=== PATIENT | female | born 1945 | race Hispanic/Latino ===

== ENCOUNTER 2022-06-23 17:12 | Emergency (ER) | payer MEDICARE ==
[2022-06-23 19:12] LABS: ALT (SGPT) 12 U/L (8-55); AST (SGOT) 23 U/L (5-34); Albumin 4.4 g/dL (3.4-4.8); Alkaline Phosphatase 92 U/L (40-110); Anion Gap 16 mmol/L (10-20); BUN (Urea Nitrogen) 17 mg/dL (9.8-20.1); Bilirubin, Total 0.3 mg/dL (0.2-1.2); Calc. Creatinine Clearance 0 mL/min (70-130); Carbon Dioxide 25 mmol/L (23-31); Chloride 101 mmol/L (98-107); Estimated GFR 77; Globulin 2.7 g/dL (2.4-3.5); Glucose 104 mg/dL (83-110); Potassium 3.7 mmol/L (3.5-5.1); Protein, Total 7.1 g/dL (5.8-8.1); Sodium 138 mmol/L (136-145)
[2022-06-23 19:14] LABS: #Monocytes 0.7 10x3/uL (0.0-1.1); #Neutrophils 6.3 10x3/uL (1.5-8.4); %Basophils 0.2 % (0.0-2.0); %Eosinophils 0.2 % (0.0-6.0); %Lymphocytes 16.3 % (18.0-47.0); %Monocytes 8.1 % (0.0-10.0); %Neutrophils 74.8 % (40.0-75.0); Hemoglobin 15.2 g/dL (12.0-15.5); Mean Corpuscular HGB CONC 32.9 g/dL (32.0-36.0); Mean Corpuscular Hemoglobin 27.9 pg (27.0-33.0); Mean Corpuscular Volume 84.8 fl (81.6-98.3); Mean Platelet Volume 9.8 fl (7.4-10.4); Platelet Count 334 10x3/uL (150-450); RBC Distribution Width 14.3 % (11.5-14.5); Red Blood Cell (RBC) Count 5.45 10x6/uL (3.90-5.03); White Blood Cell (WBC) Count 8.4 10x3/uL (3.5-10.5)
[2022-06-23 19:32] LABS: Bilirubin Neg (Negative); Blood, Urine Negative (Negative); Clarity Clear (Clear); Glucose, Urine (Dipstick) Normal (Negative); Ketone, Urine Negative (Negative); Leukocyte Negative (Negative); Nitrite Negative (Negative); Protein, Urine (Dipstick) Negative (Neg-Trace); Urobilinogen Normal mg/dL (Less than 2)
== END 2022-06-23 20:31 | disposition home or self-care (01) ==
LOC: CSHERS 17:12
DX: U07.1 COVID-19 (principal); R53.83 Other fatigue; E78.5 Hyperlipidemia, unspecified; I10 Essential (primary) hypertension; Z79.899 Other long term (current) drug therapy
CPT/HCPCS: 36415; 71045; 80053; 81003; 85025

== ENCOUNTER 2022-11-15 21:36 | Inpatient (IN) | payer MEDICARE ==
[~2022-11-15 21:36] MED LIST: Iopamidol 370 76% 100 ML VIAL ONE
[2022-11-15] MEDS ORDERED: Nitroglycerin 2% Ointment 1 INCH/1 GM Packet ONE (22:16)
[2022-11-15] MEDS ORDERED: Furosemide 40 MG/4 ML VIAL ONE (22:52)
[2022-11-15 22:54] LABS: #Eosinphils 0.1 10x3/uL (0.0-0.5); #Monocytes 0.7 10x3/uL (0.0-1.1); #Neutrophils 7.5 10x3/uL (1.5-8.4); %Basophils 0.4 % (0.0-2.0); %Eosinophils 1.1 % (0.0-6.0); %Lymphocytes 16.7 % (18.0-47.0); %Monocytes 6.8 % (0.0-10.0); %Neutrophils 74.6 % (40.0-75.0); Mean Corpuscular Hemoglobin 27.8 pg (27.0-33.0); Mean Corpuscular Volume 84.3 fl (81.6-98.3); Mean Platelet Volume 9.8 fl (7.4-10.4); Platelet Count 359 10x3/uL (150-450); RBC Distribution Width 14.5 % (11.5-14.5); Red Blood Cell (RBC) Count 5.03 10x6/uL (3.90-5.03)
[2022-11-15 23:15] LABS: ALT (SGPT) 27 U/L (8-55); AST (SGOT) 47 U/L (5-34); Albumin 4.1 g/dL (3.4-4.8); Alkaline Phosphatase 100 U/L (40-110); Anion Gap 14 mmol/L (10-20); BUN (Urea Nitrogen) 21 mg/dL (9.8-20.1); Bilirubin, Total 0.3 mg/dL (0.2-1.2); Calc. Creatinine Clearance 0 mL/min (70-130); Calcium 9.3 mg/dL (7.8-10.44); Carbon Dioxide 28 mmol/L (23-31); Chloride 101 mmol/L (98-107); Estimated GFR 34; Globulin 2.3 g/dL (2.4-3.5); Glucose 117 mg/dL (83-110); Potassium 2.9 mmol/L (3.5-5.1); Protein, Total 6.4 g/dL (5.8-8.1); Sodium 140 mmol/L (136-145)
[2022-11-15 23:39] LABS: CKMB 2.5 ng/mL (0-6.6)
[2022-11-15] MEDS ORDERED: Potassium Chloride 20 MEQ TAB ONE (23:43)
[2022-11-15] MEDS ORDERED: hydrALAZINE 20 MG/ML VIAL ONE (23:43)
[2022-11-16] MEDS ORDERED: Aspirin 325 MG TAB ONE ×2 (00:10→08:15)
[2022-11-16 00:30] LABS: Bilirubin Neg (Negative); Blood, Urine 10 (Negative); Clarity Clear (Clear); Glucose, Urine (Dipstick) Normal (Negative); Ketone, Urine Negative (Negative); Leukocyte Negative (Negative); Nitrite Negative (Negative); Protein, Urine (Dipstick) 100 mg/dl (Neg-Trace); Specific Gravity, Urine 1.005 (1.005-1.030); Urobilinogen Normal mg/dL (Less than 2)
[2022-11-16 00:34] LABS: Bacteria/HPF Rare-Few HPF (None Seen); RBC/HPF 0-3 HPF (0-3); Squamous Epithelial 0-3 HPF (0-3)
[2022-11-16] MEDS ORDERED: Metoprolol Tartrate 5 MG/5 ML VIAL IVP PRN (01:54)
[2022-11-16] MEDS ORDERED: cefTRIAXone\\ROCEPHIN 1 GM VIAL ONE (03:21)
[2022-11-16] MEDS: cefTRIAXone\\ROCEPHIN 1 GM in Sodium Chloride 0.9% 100 ML IVPB SCH (03:38)
[2022-11-16 04:07] VITALS: BMI 23.0
[2022-11-16] MEDS ORDERED: Azithromycin 500 MG VIAL ONE (04:16)
[2022-11-16] MEDS: Azithromycin 500 MG in Sodium Chloride 0.9% 250 ML 250 ML IVPB SCH (04:22)
[2022-11-16 04:36] LABS: SARS-CoV-2 NAA Rapid Test DETECTED (NotDetected)
[2022-11-16 08:14] LABS: #Basophils 0.1 10x3/uL (0.0-0.2); #Eosinphils 0.1 10x3/uL (0.0-0.5); #Monocytes 0.9 10x3/uL (0.0-1.1); #Neutrophils 6.8 10x3/uL (1.5-8.4); %Basophils 0.8 % (0.0-2.0); %Lymphocytes 15.2 % (18.0-47.0); %Monocytes 9.3 % (0.0-10.0); %Neutrophils 73.4 % (40.0-75.0); Hemoglobin 13.8 g/dL (12.0-15.5); Mean Corpuscular HGB CONC 33.3 g/dL (32.0-36.0); Mean Corpuscular Hemoglobin 28.1 pg (27.0-33.0); Mean Corpuscular Volume 84.3 fl (81.6-98.3); Mean Platelet Volume 9.8 fl (7.4-10.4); Platelet Count 349 10x3/uL (150-450); RBC Distribution Width 14.5 % (11.5-14.5); Red Blood Cell (RBC) Count 4.91 10x6/uL (3.90-5.03); White Blood Cell (WBC) Count 9.3 10x3/uL (3.5-10.5)
[2022-11-16] MEDS ORDERED: Heparin 5,000 UNITS/ML VIAL ONE (08:15)
[2022-11-16 08:49] LABS: Anion Gap 17 mmol/L (10-20); BUN (Urea Nitrogen) 25 mg/dL (9.8-20.1); Calc. Creatinine Clearance 37 mL/min (70-130); Carbon Dioxide 24 mmol/L (23-31); Chloride 106 mmol/L (98-107); Estimated GFR 46; Glucose 108 mg/dL (83-110); Magnesium 1.7 mg/dL (1.6-2.6); Potassium 3.5 mmol/L (3.5-5.1); Sodium 143 mmol/L (136-145)
[2022-11-16] MEDS ORDERED: Heparin 5,000 UNITS/ML VIAL SC SCH (09:00)
[2022-11-16] MEDS ORDERED: Aspirin 325 mg Enteric Coated Tablet PO SCH (09:00)
[2022-11-16 10:08] LABS: #Basophils 0.1 10x3/uL (0.0-0.2); #Eosinphils 0.2 10x3/uL (0.0-0.5); #Neutrophils 7.4 10x3/uL (1.5-8.4); %Basophils 0.6 % (0.0-2.0); %Eosinophils 1.5 % (0.0-6.0); %Lymphocytes 14.6 % (18.0-47.0); %Monocytes 9.8 % (0.0-10.0); %Neutrophils 73.1 % (40.0-75.0); Hemoglobin 13.4 g/dL (12.0-15.5); Mean Corpuscular HGB CONC 33.6 g/dL (32.0-36.0); Mean Corpuscular Hemoglobin 28.2 pg (27.0-33.0); Mean Platelet Volume 9.8 fl (7.4-10.4); Platelet Count 367 10x3/uL (150-450); RBC Distribution Width 14.6 % (11.5-14.5); Red Blood Cell (RBC) Count 4.75 10x6/uL (3.90-5.03); White Blood Cell (WBC) Count 10.1 10x3/uL (3.5-10.5)
[2022-11-16 11:20] LABS: INR-International Normal Ratio 1.1; Prothrombin Time 11.4 sec (9.5-12.1)
[2022-11-16 11:21] LABS: PTT 137.7 sec (22.0-33.0)
[2022-11-16] MEDS ORDERED: FLU VACC QS2022-23(65YR UP)/PF 240 MCG/0.7 ML SYRINGE IM ONE (13:15)
[2022-11-16 15:45] LABS: CKMB 4.4 ng/mL (0-6.6)
[2022-11-16] MEDS: sulfaSALAzine 500 MG TAB PO SCH (21:26)
[2022-11-16] MEDS: Isosorbide Dinitrate 10 MG TAB PO SCH (21:26)
[2022-11-17] MEDS: cefTRIAXone\\ROCEPHIN 1 GM in Sodium Chloride 0.9% 100 ML IVPB SCH (03:36)
[2022-11-17] MEDS: Azithromycin 500 MG in Sodium Chloride 0.9% 250 ML 250 ML IVPB SCH (05:07)
[2022-11-17] MEDS: Metoprolol Tartrate 25 MG TAB PO SCH ×2 (08:50→20:16)
[2022-11-17] MEDS: Lisinopril 20 MG TAB PO SCH (08:50)
[2022-11-17] MEDS: sulfaSALAzine 500 MG TAB PO SCH ×2 (08:50→20:16)
[2022-11-17] MEDS: Aspirin 81 mg Enteric Coated Tablet PO SCH (08:50)
[2022-11-17] MEDS: Isosorbide Dinitrate 10 MG TAB PO SCH ×2 (08:50→20:16)
[2022-11-17] MEDS ORDERED: Metoprolol Tartrate 25 MG TAB PO SCH (09:00)
[2022-11-17] MEDS: Nitroglycerin 2% Ointment 1 INCH/1 GM Packet TOP SCH ×2 (10:41→16:59)
[2022-11-17] MEDS ORDERED: Furosemide 20 MG/2 ML VIAL SLOW IVP SCH (12:00)
[2022-11-17 13:13] LABS: Troponin I 0.342 ng/mL (< 0.028)
[2022-11-17] MEDS ORDERED: Atorvastatin Calcium 40 MG TAB PO SCH (21:00)
[2022-11-18] MEDS: Nitroglycerin 2% Ointment 1 INCH/1 GM Packet TOP SCH ×2 (01:43→08:29)
[2022-11-18] MEDS: cefTRIAXone\\ROCEPHIN 1 GM in Sodium Chloride 0.9% 100 ML IVPB SCH (04:49)
[2022-11-18] MEDS: Azithromycin 500 MG in Sodium Chloride 0.9% 250 ML 250 ML IVPB SCH (04:49)
[2022-11-18 05:56] LABS: #Eosinphils 0.3 10x3/uL (0.0-0.5); #Monocytes 0.8 10x3/uL (0.0-1.1); #Neutrophils 4.7 10x3/uL (1.5-8.4); %Basophils 0.5 % (0.0-2.0); %Eosinophils 3.9 % (0.0-6.0); %Lymphocytes 19.9 % (18.0-47.0); %Monocytes 10.9 % (0.0-10.0); %Neutrophils 64.5 % (40.0-75.0); Hemoglobin 12.7 g/dL (12.0-15.5); Mean Corpuscular HGB CONC 32.8 g/dL (32.0-36.0); Mean Corpuscular Hemoglobin 27.7 pg (27.0-33.0); Mean Corpuscular Volume 84.3 fl (81.6-98.3); Mean Platelet Volume 9.9 fl (7.4-10.4); Platelet Count 332 10x3/uL (150-450); RBC Distribution Width 14.7 % (11.5-14.5); Red Blood Cell (RBC) Count 4.59 10x6/uL (3.90-5.03); White Blood Cell (WBC) Count 7.4 10x3/uL (3.5-10.5)
[2022-11-18 06:06] LABS: Anion Gap 13 mmol/L (10-20); BUN (Urea Nitrogen) 28 mg/dL (9.8-20.1); Calc. Creatinine Clearance 47 mL/min (70-130); Carbon Dioxide 24 mmol/L (23-31); Chloride 107 mmol/L (98-107); Estimated GFR 63; Glucose 97 mg/dL (83-110); Potassium 3.4 mmol/L (3.5-5.1); Sodium 141 mmol/L (136-145)
[2022-11-18] MEDS ORDERED: Dexamethasone 4 MG TAB PO SCH (08:00)
[2022-11-18] MEDS: Lisinopril 20 MG TAB PO SCH (08:29)
[2022-11-18] MEDS: sulfaSALAzine 500 MG TAB PO SCH (08:29)
[2022-11-18] MEDS: Aspirin 81 mg Enteric Coated Tablet PO SCH (08:30)
[2022-11-18] MEDS: Isosorbide Dinitrate 10 MG TAB PO SCH (08:32)
[2022-11-18 13:48] VITALS: BP 129/87; TEMP 97.9
== END 2022-11-18 14:19 | disposition home or self-care (01) | DRG 177 ==
LOC: CSHERS 21:36 → CSHERHOLD 11-16 03:26 → CSHTELE 11-16 12:18
PROVIDERS: ADMIT Internal Medicine; ATTEND Internal Medicine
PROC: 8E0ZXY6 Isolation (ICD-10-PCS; principal; 2022-11-16)
DX: U07.1 COVID-19 (principal); I21.4 Non-ST elevation (NSTEMI) myocardial infarction; I50.43 Acute on chronic combined systolic (congestive) and diastolic (congestive) heart failure; J15.9 Unspecified bacterial pneumonia; J96.01 Acute respiratory failure with hypoxia; N17.9 Acute kidney failure, unspecified; E78.00 Pure hypercholesterolemia, unspecified; I25.10 Atherosclerotic heart disease of native coronary artery without angina pectoris; I44.7 Left bundle-branch block, unspecified; R42 Dizziness and giddiness; I16.0 Hypertensive urgency; R77.8 Other specified abnormalities of plasma proteins; I11.0 Hypertensive heart disease with heart failure; F41.9 Anxiety disorder, unspecified; Z79.899 Other long term (current) drug therapy; Z91.198 Patient's noncompliance with other medical treatment and regimen for other reason; Z95.5 Presence of coronary angioplasty implant and graft; Z79.82 Long term (current) use of aspirin; Z98.890 Other specified postprocedural states; Z90.49 Acquired absence of other specified parts of digestive tract
CPT/HCPCS: 36415; 71045; 71275; 80048; 80053; 81003; 81015; 82553; 83605; 83735; 83880; 84443; 84484; 85025; 85379; 85610; 85730; 86140; 93005; 93010; 93306; 94760; 96374; 96375; J0360; J0456; J0696; J1644; J1940; J3490; J7050; J8540; Q9967; U0002

== ENCOUNTER 2022-11-20 00:02 | Inpatient (IN) | payer MEDICARE ==
[2022-11-20] MEDS ORDERED: hydrALAZINE 20 MG/ML VIAL ONE ×2 (00:22→01:50)
[2022-11-20 00:42] LABS: #Basophils 0.1 10x3/uL (0.0-0.2); #Eosinphils 0.3 10x3/uL (0.0-0.5); #Monocytes 0.8 10x3/uL (0.0-1.1); #Neutrophils 8.4 10x3/uL (1.5-8.4); %Basophils 0.6 % (0.0-2.0); %Eosinophils 2.7 % (0.0-6.0); %Lymphocytes 22.2 % (18.0-47.0); %Monocytes 6.6 % (0.0-10.0); %Neutrophils 67.3 % (40.0-75.0); Mean Corpuscular HGB CONC 31.6 g/dL (32.0-36.0); Mean Corpuscular Hemoglobin 27.6 pg (27.0-33.0); Mean Corpuscular Volume 87.3 fl (81.6-98.3); Mean Platelet Volume 9.9 fl (7.4-10.4); Platelet Count 461 10x3/uL (150-450); RBC Distribution Width 14.9 % (11.5-14.5); Red Blood Cell (RBC) Count 5.43 10x6/uL (3.90-5.03); White Blood Cell (WBC) Count 12.4 10x3/uL (3.5-10.5)
[2022-11-20 00:47] LABS: ALT (SGPT) 106 U/L (8-55); AST (SGOT) 149 U/L (5-34); Albumin 4.2 g/dL (3.4-4.8); Alkaline Phosphatase 145 U/L (40-110); Anion Gap 19 mmol/L (10-20); BUN (Urea Nitrogen) 33 mg/dL (9.8-20.1); Bilirubin, Total 0.3 mg/dL (0.2-1.2); Calc. Creatinine Clearance 0 mL/min (70-130); Calcium 9.3 mg/dL (7.8-10.44); Carbon Dioxide 25 mmol/L (23-31); Chloride 104 mmol/L (98-107); Estimated GFR 51; Globulin 2.2 g/dL (2.4-3.5); Glucose 110 mg/dL (83-110); Potassium 3.5 mmol/L (3.5-5.1); Protein, Total 6.4 g/dL (5.8-8.1); Sodium 144 mmol/L (136-145)
[2022-11-20 01:04] LABS: CKMB 1.4 ng/mL (0-6.6)
[2022-11-20] MEDS ORDERED: Aspirin 325 MG TAB ONE (01:50)
[2022-11-20] MEDS ORDERED: Bisacodyl 5 MG TAB PO PRN (01:58)
[2022-11-20] MEDS ORDERED: HYDROcodone/Acetaminophen 5/325 mg Tablet PO PRN (01:58)
[2022-11-20] MEDS ORDERED: Zolpidem Tartrate 5 MG TAB PO PRN (01:58)
[2022-11-20] MEDS ORDERED: Acetaminophen 325 MG TAB PO PRN ×2 (01:58)
[2022-11-20] MEDS ORDERED: Acetaminophen 650 MG Suppository PR PRN (01:58)
[2022-11-20] MEDS ORDERED: Guaifenesin DM 100-10/5 ML UDCUP PO PRN (01:58)
[2022-11-20] MEDS ORDERED: Ventolin HFA Inhaler 60 PUFF INHALER INH PRN (01:58)
[2022-11-20] MEDS ORDERED: Nitroglycerin 0.4 MG TAB (25 Tab Bottle) SL PRN (01:58)
[2022-11-20] MEDS ORDERED: Benzonatate 100 MG CAP PO PRN (01:58)
[2022-11-20] MEDS ORDERED: Aspirin 325 MG TAB PO SCH (02:15)
[2022-11-20] MEDS ORDERED: Furosemide 40 MG/4 ML VIAL SLOW IVP SCH ×2 (02:15→09:15)
[2022-11-20] MEDS: cefTRIAXone\\ROCEPHIN 2 GM in Sodium Chloride 0.9% 100 ML IVPB SCH (03:10)
[2022-11-20 04:01] LABS: ALT (SGPT) 104 U/L (8-55); AST (SGOT) 121 U/L (5-34); Albumin 3.6 g/dL (3.4-4.8); Alkaline Phosphatase 121 U/L (40-110); Anion Gap 17 mmol/L (10-20); BUN (Urea Nitrogen) 30 mg/dL (9.8-20.1); Bilirubin, Direct 0.1 mg/dL (0.1-0.3); Bilirubin, Total 0.3 mg/dL (0.2-1.2); Calc. Creatinine Clearance 46 mL/min (70-130); Carbon Dioxide 24 mmol/L (23-31); Cardiac Risk 3.8 (Less than 4.5); Chloride 106 mmol/L (98-107); Cholesterol 169 mg/dl (< 200 Desired); Estimated GFR 61; Glucose 103 mg/dL (83-110); HDL Cholesterol 44 mg/dL (>60 Neg Risk); LDL Cholesterol, Calculated 96 mg/dL; Magnesium 1.7 mg/dL (1.6-2.6); Potassium 3.7 mmol/L (3.5-5.1); Protein, Total 5.7 g/dL (5.8-8.1); Sodium 143 mmol/L (136-145); Triglycerides 147 mg/dL (Less than 150)
[2022-11-20 04:09] LABS: #Basophils 0.1 10x3/uL (0.0-0.2); #Eosinphils 0.2 10x3/uL (0.0-0.5); #Monocytes 0.9 10x3/uL (0.0-1.1); #Neutrophils 11.4 10x3/uL (1.5-8.4); %Basophils 0.5 % (0.0-2.0); %Eosinophils 1.2 % (0.0-6.0); %Lymphocytes 8.9 % (18.0-47.0); %Monocytes 6.2 % (0.0-10.0); %Neutrophils 82.7 % (40.0-75.0); Hemoglobin 13.6 g/dL (12.0-15.5); Mean Corpuscular HGB CONC 32.3 g/dL (32.0-36.0); Mean Corpuscular Hemoglobin 27.8 pg (27.0-33.0); Mean Corpuscular Volume 86.1 fl (81.6-98.3); Platelet Count 331 10x3/uL (150-450); Red Blood Cell (RBC) Count 4.89 10x6/uL (3.90-5.03); White Blood Cell (WBC) Count 13.8 10x3/uL (3.5-10.5)
[2022-11-20 04:16] LABS: CRP (Inflammatory) 1.08 mg/dL (= or < 0.5)
[2022-11-20] MEDS: Furosemide 40 MG/4 ML VIAL SLOW IVP SCH ×2 (05:58→15:14)
[2022-11-20 07:06] LABS: CKMB 1.5 ng/mL (0-6.6)
[2022-11-20] MEDS: sulfaSALAzine 500 MG TAB PO SCH ×2 (08:50→20:19)
[2022-11-20] MEDS: Lisinopril 20 MG TAB PO SCH (08:50)
[2022-11-20] MEDS: Isosorbide Dinitrate 20 MG TAB PO SCH ×2 (08:50→20:19)
[2022-11-20] MEDS: Zinc Sulfate 220 MG CAP PO SCH (08:50)
[2022-11-20] MEDS: Ascorbic Acid 500 mg Chewable Tablet PO SCH (08:50)
[2022-11-20] MEDS: Aspirin 81 mg Enteric Coated Tablet PO SCH (08:50)
[2022-11-20] MEDS: Dexamethasone 4 MG TAB PO SCH (08:51)
[2022-11-20] MEDS: Enoxaparin Sodium 40 MG/0.4 ML SYRINGE SC SCH (08:51)
[2022-11-20] MEDS ORDERED: REMDESIVIR 200 MG in Sodium Chloride 0.9% 250 ML 250 ML IV SCH (09:00)
[2022-11-20] MEDS ORDERED: Dexamethasone 20 MG/5 ML VIAL SLOW IVP SCH (09:00)
[2022-11-20] MEDS ORDERED: Aspirin Chewable 81 MG TAB PO SCH (09:00)
[2022-11-20] MEDS: Atorvastatin Calcium 40 MG TAB PO SCH (20:19)
[2022-11-21] MEDS: cefTRIAXone\\ROCEPHIN 2 GM in Sodium Chloride 0.9% 100 ML IVPB SCH (02:39)
[2022-11-21 04:12] LABS: #Neutrophils 5.9 10x3/uL (1.5-8.4); %Basophils 0.2 % (0.0-2.0); %Eosinophils 0.2 % (0.0-6.0); %Monocytes 11.8 % (0.0-10.0); %Neutrophils 72.3 % (40.0-75.0); Hemoglobin 13.7 g/dL (12.0-15.5); Mean Corpuscular HGB CONC 32.9 g/dL (32.0-36.0); Mean Corpuscular Hemoglobin 27.7 pg (27.0-33.0); Mean Platelet Volume 9.8 fl (7.4-10.4); Platelet Count 350 10x3/uL (150-450); RBC Distribution Width 14.8 % (11.5-14.5); Red Blood Cell (RBC) Count 4.95 10x6/uL (3.90-5.03); White Blood Cell (WBC) Count 8.1 10x3/uL (3.5-10.5)
[2022-11-21 04:25] LABS: ALT (SGPT) 63 U/L (8-55); AST (SGOT) 38 U/L (5-34); Albumin 3.6 g/dL (3.4-4.8); Alkaline Phosphatase 99 U/L (40-110); Anion Gap 18 mmol/L (10-20); BUN (Urea Nitrogen) 40 mg/dL (9.8-20.1); Bilirubin, Total 0.2 mg/dL (0.2-1.2); Calc. Creatinine Clearance 39 mL/min (70-130); Calcium 8.8 mg/dL (7.8-10.44); Carbon Dioxide 24 mmol/L (23-31); Chloride 102 mmol/L (98-107); Estimated GFR 47; Glucose 113 mg/dL (83-110); Potassium 3.3 mmol/L (3.5-5.1); Protein, Total 5.6 g/dL (5.8-8.1); Sodium 141 mmol/L (136-145)
[2022-11-21] MEDS: Furosemide 40 MG/4 ML VIAL SLOW IVP SCH ×2 (05:34→14:58)
[2022-11-21 06:36] VITALS: BMI 23.6
[2022-11-21] MEDS ORDERED: REMDESIVIR 100 MG in Sodium Chloride 0.9% 250 ML 250 ML IV SCH (09:00)
[2022-11-21] MEDS: Dexamethasone 4 MG TAB PO SCH (09:17)
[2022-11-21] MEDS: Aspirin 81 mg Enteric Coated Tablet PO SCH (09:17)
[2022-11-21] MEDS: Lisinopril 20 MG TAB PO SCH (09:17)
[2022-11-21] MEDS: Ascorbic Acid 500 mg Chewable Tablet PO SCH (09:17)
[2022-11-21] MEDS: Isosorbide Dinitrate 20 MG TAB PO SCH ×2 (09:17→19:28)
[2022-11-21] MEDS: Enoxaparin Sodium 40 MG/0.4 ML SYRINGE SC SCH (09:17)
[2022-11-21] MEDS: sulfaSALAzine 500 MG TAB PO SCH ×2 (09:18→19:28)
[2022-11-21] MEDS: Zinc Sulfate 220 MG CAP PO SCH (09:18)
[2022-11-21] MEDS ORDERED: Potassium Chloride 20 MEQ TAB PO SCH (16:00)
[2022-11-21] MEDS: Carvedilol 6.25 MG TAB PO SCH (17:12)
[2022-11-21] MEDS: Atorvastatin Calcium 40 MG TAB PO SCH (19:28)
[2022-11-22] MEDS: cefTRIAXone\\ROCEPHIN 2 GM in Sodium Chloride 0.9% 100 ML IVPB SCH (02:52)
[2022-11-22 04:17] LABS: #Monocytes 0.9 10x3/uL (0.0-1.1); #Neutrophils 6.2 10x3/uL (1.5-8.4); %Basophils 0.2 % (0.0-2.0); %Eosinophils 0.1 % (0.0-6.0); %Monocytes 10.5 % (0.0-10.0); %Neutrophils 73.7 % (40.0-75.0); Hemoglobin 14.4 g/dL (12.0-15.5); Mean Corpuscular HGB CONC 33.3 g/dL (32.0-36.0); Mean Corpuscular Hemoglobin 27.6 pg (27.0-33.0); Mean Corpuscular Volume 82.9 fl (81.6-98.3); Platelet Count 407 10x3/uL (150-450); RBC Distribution Width 14.6 % (11.5-14.5); Red Blood Cell (RBC) Count 5.21 10x6/uL (3.90-5.03); White Blood Cell (WBC) Count 8.4 10x3/uL (3.5-10.5)
[2022-11-22 04:29] LABS: Anion Gap 17 mmol/L (10-20); BUN (Urea Nitrogen) 40 mg/dL (9.8-20.1); Calc. Creatinine Clearance 44 mL/min (70-130); Calcium 9.2 mg/dL (7.8-10.44); Carbon Dioxide 25 mmol/L (23-31); Chloride 102 mmol/L (98-107); Estimated GFR 55; Glucose 111 mg/dL (83-110); Potassium 3.8 mmol/L (3.5-5.1); Sodium 140 mmol/L (136-145)
[2022-11-22] MEDS: Furosemide 40 MG/4 ML VIAL SLOW IVP SCH (05:50)
[2022-11-22] MEDS: Aspirin 81 mg Enteric Coated Tablet PO SCH (08:25)
[2022-11-22] MEDS: Ascorbic Acid 500 mg Chewable Tablet PO SCH (08:25)
[2022-11-22] MEDS: Enoxaparin Sodium 40 MG/0.4 ML SYRINGE SC SCH (08:25)
[2022-11-22] MEDS: Carvedilol 6.25 MG TAB PO SCH (08:25)
[2022-11-22] MEDS: Zinc Sulfate 220 MG CAP PO SCH (08:25)
[2022-11-22] MEDS: Lisinopril 20 MG TAB PO SCH (08:25)
[2022-11-22] MEDS: Isosorbide Dinitrate 20 MG TAB PO SCH (08:25)
[2022-11-22] MEDS: sulfaSALAzine 500 MG TAB PO SCH (08:25)
[2022-11-22 10:18] VITALS: BP 177/89; TEMP 98
== END 2022-11-22 11:49 | disposition home or self-care (01) | DRG 291 ==
LOC: CSHERS 00:02 → CSHTELE 02:47
PROVIDERS: ADMIT Internal Medicine; ATTEND Hospitalist
DX: I13.0 Hypertensive heart and chronic kidney disease with heart failure and stage 1 through stage 4 chronic kidney disease, or unspecified chronic kidney disease (principal); I50.43 Acute on chronic combined systolic (congestive) and diastolic (congestive) heart failure; J96.01 Acute respiratory failure with hypoxia; N17.9 Acute kidney failure, unspecified; I25.10 Atherosclerotic heart disease of native coronary artery without angina pectoris; E78.5 Hyperlipidemia, unspecified; N18.30 Chronic kidney disease, stage 3 unspecified; M19.90 Unspecified osteoarthritis, unspecified site; J20.9 Acute bronchitis, unspecified; E87.6 Hypokalemia; I25.5 Ischemic cardiomyopathy; I44.7 Left bundle-branch block, unspecified; Z87.01 Personal history of pneumonia (recurrent); Z86.16 Personal history of COVID-19; Z79.82 Long term (current) use of aspirin; Z79.899 Other long term (current) drug therapy; Z90.49 Acquired absence of other specified parts of digestive tract; I25.2 Old myocardial infarction
CPT/HCPCS: 36415; 71045; 80048; 80053; 80061; 82553; 83605; 83735; 83880; 84484; 85025; 86140; 87040; 87070; 87205; 93005; 94760; 96374; 96376; J0248; J0360; J0696; J1650; J1940; J3490; J7050; J8540

== ENCOUNTER 2023-01-14 10:21 | Observation (INO) | payer MEDICARE ==
[2023-01-14] MEDS ORDERED: Aspirin Chewable 81 MG TAB ONE (10:47)
[2023-01-14 11:01] LABS: #Basophils 0.1 10x3/uL (0.0-0.2); #Eosinphils 0.1 10x3/uL (0.0-0.5); #Monocytes 0.7 10x3/uL (0.0-1.1); #Neutrophils 5.7 10x3/uL (1.5-8.4); %Basophils 0.6 % (0.0-2.0); %Eosinophils 1.3 % (0.0-6.0); %Lymphocytes 18.3 % (18.0-47.0); %Monocytes 8.8 % (0.0-10.0); %Neutrophils 70.7 % (40.0-75.0); Hemoglobin 13.9 g/dL (12.0-15.5); Mean Corpuscular HGB CONC 32.1 g/dL (32.0-36.0); Mean Corpuscular Hemoglobin 27.9 pg (27.0-33.0); Mean Corpuscular Volume 86.8 fl (81.6-98.3); Mean Platelet Volume 10.1 fl (7.4-10.4); Platelet Count 292 10x3/uL (150-450); RBC Distribution Width 15.1 % (11.5-14.5); Red Blood Cell (RBC) Count 4.99 10x6/uL (3.90-5.03)
[2023-01-14 11:10] LABS: ALT (SGPT) 13 U/L (8-55); Albumin 4.5 g/dL (3.4-4.8); Alkaline Phosphatase 95 U/L (40-110); Anion Gap 17 mmol/L (10-20); BUN (Urea Nitrogen) 25 mg/dL (9.8-20.1); Bilirubin, Total 0.4 mg/dL (0.2-1.2); Calc. Creatinine Clearance 0 mL/min (70-130); Calcium 9.3 mg/dL (7.8-10.44); Carbon Dioxide 26 mmol/L (23-31); Chloride 104 mmol/L (98-107); Estimated GFR 51; Globulin 2.5 g/dL (2.4-3.5); Glucose 103 mg/dL (83-110); Potassium 3.9 mmol/L (3.5-5.1); Sodium 143 mmol/L (136-145)
[2023-01-14 11:12] LABS: AST (SGOT) 26 U/L (5-34)
[2023-01-14] MEDS ORDERED: Acetaminophen 650 MG Suppository PR PRN (12:27)
[2023-01-14] MEDS ORDERED: Ondansetron PF 4 MG/2 ML Vial IVP PRN (12:27)
[2023-01-14] MEDS ORDERED: hydrALAZINE 20 MG/ML VIAL SLOW IVP PRN (12:27)
[2023-01-14] MEDS ORDERED: Ondansetron ODT 4 MG TAB PO PRN (12:27)
[2023-01-14] MEDS ORDERED: Acetaminophen 325 MG TAB PO PRN (12:27)
[2023-01-14 12:40] LABS: SARS-CoV-2 NAA Rapid Test Not Detected (NotDetected)
[2023-01-14 14:33] VITALS: BMI 23.0
[2023-01-14] MEDS ORDERED: Atorvastatin Calcium 40 MG TAB PO SCH (21:00)
[2023-01-15 04:40] LABS: #Eosinphils 0.2 10x3/uL (0.0-0.5); #Monocytes 0.7 10x3/uL (0.0-1.1); %Basophils 0.5 % (0.0-2.0); %Eosinophils 2.3 % (0.0-6.0); %Lymphocytes 25.7 % (18.0-47.0); %Monocytes 10.6 % (0.0-10.0); %Neutrophils 60.7 % (40.0-75.0); Hemoglobin 13.7 g/dL (12.0-15.5); Mean Corpuscular HGB CONC 32.2 g/dL (32.0-36.0); Mean Corpuscular Hemoglobin 27.6 pg (27.0-33.0); Mean Corpuscular Volume 85.5 fl (81.6-98.3); Platelet Count 239 10x3/uL (150-450); RBC Distribution Width 15.1 % (11.5-14.5); Red Blood Cell (RBC) Count 4.97 10x6/uL (3.90-5.03); White Blood Cell (WBC) Count 6.6 10x3/uL (3.5-10.5)
[2023-01-15 04:46] LABS: Anion Gap 14 mmol/L (10-20); BUN (Urea Nitrogen) 21 mg/dL (9.8-20.1); Calc. Creatinine Clearance 48 mL/min (70-130); Calcium 9.3 mg/dL (7.8-10.44); Carbon Dioxide 26 mmol/L (23-31); Cardiac Risk 3.9 (Less than 4.5); Chloride 105 mmol/L (98-107); Cholesterol 188 mg/dl (< 200 Desired); Estimated GFR 65; Glucose 99 mg/dL (83-110); HDL Cholesterol 48 mg/dL (>60 Neg Risk); LDL Cholesterol, Calculated 112 mg/dL; Potassium 3.3 mmol/L (3.5-5.1); Sodium 142 mmol/L (136-145); Triglycerides 141 mg/dL (Less than 150)
[2023-01-15] MEDS ORDERED: Aspirin 81 mg Enteric Coated Tablet PO SCH (09:00)
[2023-01-15] MEDS ORDERED: FLU VACC QS2022-23(65YR UP)/PF 240 MCG/0.7 ML SYRINGE IM ONE (09:00)
[2023-01-15 18:49] VITALS: BP 168/75; TEMP 97.1
== END 2023-01-15 18:45 | disposition home or self-care (01) ==
LOC: CSHERS 10:21 → CSHTELE 14:19
PROVIDERS: ADMIT Internal Medicine; ATTEND Physician Assistant
DX: R29.898 Other symptoms and signs involving the musculoskeletal system (principal); I13.0 Hypertensive heart and chronic kidney disease with heart failure and stage 1 through stage 4 chronic kidney disease, or unspecified chronic kidney disease; I50.40 Unspecified combined systolic (congestive) and diastolic (congestive) heart failure; N18.30 Chronic kidney disease, stage 3 unspecified; I25.10 Atherosclerotic heart disease of native coronary artery without angina pectoris; I44.7 Left bundle-branch block, unspecified; Z20.822 Contact with and (suspected) exposure to COVID-19; E78.5 Hyperlipidemia, unspecified; Z79.82 Long term (current) use of aspirin; Z79.899 Other long term (current) drug therapy; Z79.02 Long term (current) use of antithrombotics/antiplatelets
CPT/HCPCS: 70450; 70551; 80048; 80053; 80061; 82962; 84484; 85025 ×2; 93005; 93306; 93880; 96372; 99285; G0378 ×3; U0002; 36415; 36416; J1650

== ENCOUNTER 2023-11-17 09:36 | Emergency (ER) | payer MEDICARE ==
[2023-11-17 11:01] LABS: #Eosinphils 0.2 10x3/uL (0.0-0.5); #Monocytes 0.5 10x3/uL (0.0-1.1); #Neutrophils 3.6 10x3/uL (1.5-8.4); %Basophils 0.5 % (0.0-2.0); %Eosinophils 3.2 % (0.0-6.0); %Lymphocytes 22.2 % (18.0-47.0); %Monocytes 8.8 % (0.0-10.0); %Neutrophils 64.8 % (40.0-75.0); Hemoglobin 12.7 g/dL (12.0-15.5); Mean Corpuscular HGB CONC 32.6 g/dL (32.0-36.0); Mean Corpuscular Hemoglobin 28.2 pg (27.0-33.0); Mean Corpuscular Volume 86.5 fl (81.6-98.3); Mean Platelet Volume 10.1 fl (7.4-10.4); Platelet Count 254 10x3/uL (150-450); RBC Distribution Width 14.8 % (11.5-14.5); Red Blood Cell (RBC) Count 4.51 10x6/uL (3.90-5.03); White Blood Cell (WBC) Count 5.6 10x3/uL (3.5-10.5)
[2023-11-17 11:29] LABS: ALT (SGPT) 11 U/L (8-55); AST (SGOT) 24 U/L (5-34); Alkaline Phosphatase 78 U/L (40-110); Anion Gap 14 mmol/L (10-20); BUN (Urea Nitrogen) 16 mg/dL (9.8-20.1); Bilirubin, Total 0.4 mg/dL (0.2-1.2); Calc. Creatinine Clearance 0 mL/min (70-130); Calcium 8.9 mg/dL (7.8-10.44); Carbon Dioxide 24 mmol/L (23-31); Chloride 105 mmol/L (98-107); Estimated GFR 54; Globulin 2.2 g/dL (2.4-3.5); Glucose 105 mg/dL (83-110); Potassium 3.4 mmol/L (3.5-5.1); Protein, Total 6.2 g/dL (5.8-8.1); Sodium 140 mmol/L (136-145)
[2023-11-17] MEDS ORDERED: Potassium Chloride 20 MEQ TAB ONE (11:51)
[2023-11-17] MEDS ORDERED: Labetalol HCl 100 MG/20 ML VIAL ONE (11:53)
[2023-11-17 12:02] LABS: Magnesium 1.7 mg/dL (1.6-2.6)
== END 2023-11-17 13:45 | disposition home or self-care (01) ==
LOC: CSHERS 09:36
DX: E87.6 Hypokalemia (principal); I10 Essential (primary) hypertension
CPT/HCPCS: 70450; 80053; 83735; 84443; 85025; 93005; 94760; 96374

== ENCOUNTER 2024-05-03 21:56 | Inpatient (IN) | payer MEDICARE ==
[2024-05-03 23:29] LABS: #Basophils 0.04 10x3/uL (0.0-0.2); #Eosinphils 0.06 10x3/uL (0.0-0.5); #Monocytes 0.99 10x3/uL (0.0-1.1); %Basophils 0.3 % (0.0-2.0); %Eosinophils 0.4 % (0.0-6.0); %Lymphocytes 11.9 % (18.0-47.0); %Monocytes 6.7 % (0.0-10.0); %Neutrophils 80.2 % (40.0-75.0); Hematocrit 45.5 % (34.9-44.5); Hemoglobin 15.1 g/dL (12.0-15.5); Mean Corpuscular HGB CONC 33.2 g/dL (32.0-36.0); Mean Corpuscular Hemoglobin 28.2 pg (27.0-33.0); Mean Platelet Volume 9.9 fL (7.4-10.4); Platelet Count 236 10x3/uL (150-450); RBC Distribution Width 14.9 % (11.5-14.5); Red Blood Cell (RBC) Count 5.35 10x6/uL (3.90-5.03); White Blood Cell (WBC) Count 14.8 10x3/uL (3.5-10.5)
[2024-05-03 23:41] LABS: ALT (SGPT) 12 U/L (8-55); AST (SGOT) 22 U/L (5-34); Albumin 3.9 g/dL (3.4-4.8); Alkaline Phosphatase 86 U/L (40-110); Anion Gap 18 mmol/L (10-20); BUN (Urea Nitrogen) 19 mg/dL (9.8-20.1); Bilirubin, Total 0.4 mg/dL (0.2-1.2); CK (CPK) 42 U/L (29-168); Calc. Creatinine Clearance 0 mL/min (70-130); Calcium 9.2 mg/dL (7.8-10.44); Carbon Dioxide 20 mmol/L (23-31); Chloride 105 mmol/L (98-107); Estimated GFR 59; Globulin 2.3 g/dL (2.4-3.5); Glucose 103 mg/dL (83-110); Potassium 3.4 mmol/L (3.5-5.1); Protein, Total 6.2 g/dL (5.8-8.1); Sodium 140 mmol/L (136-145)
[2024-05-03 23:47] LABS: Troponin I 0.029 ng/mL (< 0.028)
[2024-05-04] MEDS ORDERED: Aspirin Chewable 81 MG TAB ONE (00:31)
[2024-05-04 01:05] LABS: Platelet Adequacy Comment Appears Adequate; RBC Morph Comment Within Normal Limits
[2024-05-04] MEDS ORDERED: Senokot S 8.6-50 MG TAB PO PRN (01:13)
[2024-05-04] MEDS ORDERED: Ondansetron PF 4 MG/2 ML Vial IVP PRN (01:13)
[2024-05-04] MEDS ORDERED: Calcium Carbonate 500 MG ChewTAB PO PRN (01:13)
[2024-05-04] MEDS ORDERED: Albuterol 2.5 MG (3 mL) NEB NEB PRN (01:18)
[2024-05-04] MEDS ORDERED: cefTRIAXone (ROCEPHIN) 1 GM VIAL ONE (01:29)
[2024-05-04] MEDS ORDERED: cefTRIAXone\\ROCEPHIN 2 GM in Sodium Chloride 0.9% 100 ML IVPB SCH (02:00)
[2024-05-04] MEDS: Lactated Ringer's 500 ML IV SCH (02:18)
[2024-05-04] MEDS: Azithromycin 500 MG in Sodium Chloride 0.9% 250 ML 250 ML IVPB SCH (02:18)
[2024-05-04] MEDS: Benzonatate 100 MG CAP PO SCH ×2 (02:19→07:52)
[2024-05-04] MEDS: Potassium Chloride 20 MEQ TAB PO SCH (02:19)
[2024-05-04 02:39] VITALS: BMI 24.2
[2024-05-04] MEDS: cefTRIAXone\\ROCEPHIN 1 GM in Sodium Chloride 0.9% 100 ML IVPB SCH (03:46)
[2024-05-04] MEDS: Nitroglycerin 2% Ointment 1 INCH/1 GM Packet TOP SCH (03:46)
[2024-05-04 03:50] LABS: #Basophils 0.02 10x3/uL (0.0-0.2); #Eosinphils 0.01 10x3/uL (0.0-0.5); #Monocytes 0.92 10x3/uL (0.0-1.1); #Neutrophils 12.41 10x3/uL (1.5-8.4); %Basophils 0.1 % (0.0-2.0); %Eosinophils 0.1 % (0.0-6.0); %Lymphocytes 7.5 % (18.0-47.0); %Monocytes 6.3 % (0.0-10.0); %Neutrophils 85.4 % (40.0-75.0); Hematocrit 43.5 % (34.9-44.5); Hemoglobin 14.4 g/dL (12.0-15.5); Mean Corpuscular HGB CONC 33.1 g/dL (32.0-36.0); Mean Corpuscular Hemoglobin 28.1 pg (27.0-33.0); Mean Platelet Volume 9.9 fL (7.4-10.4); Platelet Count 259 10x3/uL (150-450); RBC Distribution Width 14.6 % (11.5-14.5); Red Blood Cell (RBC) Count 5.12 10x6/uL (3.90-5.03); White Blood Cell (WBC) Count 14.5 10x3/uL (3.5-10.5)
[2024-05-04 04:10] LABS: ALT (SGPT) 12 U/L (8-55); AST (SGOT) 19 U/L (5-34); Albumin 3.3 g/dL (3.4-4.8); Alkaline Phosphatase 75 U/L (40-110); Anion Gap 17 mmol/L (10-20); BUN (Urea Nitrogen) 17 mg/dL (9.8-20.1); Bilirubin, Total 0.2 mg/dL (0.2-1.2); Calc. Creatinine Clearance 51 mL/min (70-130); Calcium 8.8 mg/dL (7.8-10.44); Carbon Dioxide 20 mmol/L (23-31); Chloride 109 mmol/L (98-107); Estimated GFR 66; Globulin 2.1 g/dL (2.4-3.5); Glucose 116 mg/dL (83-110); Potassium 3.8 mmol/L (3.5-5.1); Protein, Total 5.4 g/dL (5.8-8.1); Sodium 142 mmol/L (136-145)
[2024-05-04 04:14] LABS: Troponin I 0.051 ng/mL (< 0.028)
[2024-05-04 06:13] LABS: Bilirubin Neg (Negative); Blood, Urine Negative (Negative); Clarity Clear (Clear); Glucose, Urine (Dipstick) Normal (Negative); Ketone, Urine Negative (Negative); Leukocyte Negative (Negative); Nitrite Negative (Negative); Protein, Urine (Dipstick) Negative (Neg-Trace); Urobilinogen Normal mg/dL (Less than 2)
[2024-05-04 06:21] LABS: Bacteria/HPF None Seen HPF (None Seen); RBC/HPF None Seen HPF (0-3); Squamous Epithelial None Seen HPF (0-3); WBC/HPF None Seen HPF (0-3)
[2024-05-04] MEDS: sulfaSALAzine 500 MG TAB PO SCH (07:51)
[2024-05-04] MEDS: Lisinopril 20 MG TAB PO SCH (07:51)
[2024-05-04] MEDS: Clopidogrel Bisulfate 75 MG TAB PO SCH (07:51)
[2024-05-04] MEDS: Aspirin 81 mg Enteric Coated Tablet PO SCH (07:52)
[2024-05-04] MEDS: Isosorbide Dinitrate 20 MG TAB PO SCH (07:52)
[2024-05-04] MEDS: Enoxaparin 40 MG (0.4 mL) SYRINGE SC SCH (07:52)
[2024-05-04] MEDS: Pantoprazole DR 40 MG TAB PO SCH (07:52)
[2024-05-04] MEDS: Acetaminophen 325 MG TAB PO PRN (07:56)
[2024-05-04 08:36] LABS: Troponin I 0.032 ng/mL (< 0.028)
[2024-05-04] MEDS: Atorvastatin Calcium 40 MG TAB PO SCH (20:25)
[2024-05-05] MEDS ORDERED: cefTRIAXone\\ROCEPHIN 1 GM in Sodium Chloride 0.9% 100 ML IVPB SCH (02:00)
[2024-05-05] MEDS ORDERED: cefTRIAXone\\ROCEPHIN 2 GM in Sodium Chloride 0.9% 100 ML IVPB SCH (02:00)
[2024-05-05] MEDS: cefTRIAXone\\ROCEPHIN 2 GM in Sodium Chloride 0.9% 100 ML IVPB SCH (02:19)
[2024-05-05 05:00] LABS: #Basophils 0.03 10x3/uL (0.0-0.2); #Eosinphils 0.07 10x3/uL (0.0-0.5); #Monocytes 1.24 10x3/uL (0.0-1.1); #Neutrophils 14.97 10x3/uL (1.5-8.4); %Basophils 0.2 % (0.0-2.0); %Eosinophils 0.4 % (0.0-6.0); %Lymphocytes 5.9 % (18.0-47.0); %Monocytes 7.1 % (0.0-10.0); %Neutrophils 85.5 % (40.0-75.0); Hematocrit 40.1 % (34.9-44.5); Hemoglobin 13.3 g/dL (12.0-15.5); Mean Corpuscular HGB CONC 33.2 g/dL (32.0-36.0); Mean Corpuscular Hemoglobin 28.1 pg (27.0-33.0); Mean Corpuscular Volume 84.8 fL (81.6-98.3); Mean Platelet Volume 9.7 fL (7.4-10.4); Platelet Count 249 10x3/uL (150-450); Red Blood Cell (RBC) Count 4.73 10x6/uL (3.90-5.03); White Blood Cell (WBC) Count 17.5 10x3/uL (3.5-10.5)
[2024-05-05 05:12] LABS: Anion Gap 15 mmol/L (10-20); BUN (Urea Nitrogen) 11 mg/dL (9.8-20.1); Calc. Creatinine Clearance 56 mL/min (70-130); Calcium 8.3 mg/dL (7.8-10.44); Carbon Dioxide 18 mmol/L (23-31); Chloride 108 mmol/L (98-107); Estimated GFR 73; Glucose 109 mg/dL (83-110); Potassium 3.7 mmol/L (3.5-5.1); Sodium 137 mmol/L (136-145)
[2024-05-05] MEDS: Famotidine 20 MG TAB PO SCH (10:30)
[2024-05-06] MEDS: Guaifenesin DM 100-10/5 ML UDCUP PO PRN (04:31)
[2024-05-06 04:32] LABS: #Basophils 0.03 10x3/uL (0.0-0.2); #Eosinphils 0.23 10x3/uL (0.0-0.5); #Monocytes 1.11 10x3/uL (0.0-1.1); #Neutrophils 12.12 10x3/uL (1.5-8.4); %Basophils 0.2 % (0.0-2.0); %Eosinophils 1.5 % (0.0-6.0); %Lymphocytes 8.6 % (18.0-47.0); %Monocytes 7.5 % (0.0-10.0); %Neutrophils 81.7 % (40.0-75.0); Hematocrit 39.4 % (34.9-44.5); Hemoglobin 12.8 g/dL (12.0-15.5); Mean Corpuscular HGB CONC 32.5 g/dL (32.0-36.0); Mean Corpuscular Hemoglobin 27.7 pg (27.0-33.0); Mean Corpuscular Volume 85.3 fL (81.6-98.3); Mean Platelet Volume 9.7 fL (7.4-10.4); Platelet Count 286 10x3/uL (150-450); RBC Distribution Width 14.9 % (11.5-14.5); Red Blood Cell (RBC) Count 4.62 10x6/uL (3.90-5.03); White Blood Cell (WBC) Count 14.8 10x3/uL (3.5-10.5)
[2024-05-06 04:36] LABS: Anion Gap 12 mmol/L (10-20); BUN (Urea Nitrogen) 14 mg/dL (9.8-20.1); Calc. Creatinine Clearance 54 mL/min (70-130); Calcium 8.7 mg/dL (7.8-10.44); Carbon Dioxide 22 mmol/L (23-31); Chloride 108 mmol/L (98-107); Estimated GFR 71; Glucose 106 mg/dL (83-110); Potassium 3.4 mmol/L (3.5-5.1); Sodium 139 mmol/L (136-145)
[2024-05-06] MEDS: Potassium Chloride 20 MEQ TAB PO SCH ×2 (06:50→10:12)
[2024-05-06] MEDS: Famotidine 20 MG TAB PO SCH (07:51)
[2024-05-06] MEDS ORDERED: Meloxicam 7.5 MG TAB PO PRN (10:50)
[2024-05-06] MEDS: Furosemide 20 MG TAB PO SCH (21:25)
[2024-05-06] MEDS: sulfaSALAzine 500 MG TAB PO SCH (21:25)
[2024-05-06] MEDS: Latanoprost 0.005% Ophth Soln 2.5 ml Bottle EA EYE SCH (21:34)
[2024-05-07] MEDS: hydrALAZINE 10 MG TAB PO PRN (13:34)
[2024-05-07] MEDS: Lisinopril 20 MG TAB PO SCH (20:05)
[2024-05-07] MEDS: Benzonatate 100 MG CAP PO SCH (21:34)
[2024-05-08 06:16] VITALS: TEMP 98.4
[2024-05-08 09:23] LABS: #Basophils 0.06 10x3/uL (0.0-0.2); #Eosinphils 0.13 10x3/uL (0.0-0.5); #Monocytes 0.93 10x3/uL (0.0-1.1); #Neutrophils 5.37 10x3/uL (1.5-8.4); %Basophils 0.7 % (0.0-2.0); %Eosinophils 1.6 % (0.0-6.0); %Lymphocytes 18.4 % (18.0-47.0); %Monocytes 11.5 % (0.0-10.0); %Neutrophils 66.6 % (40.0-75.0); Hematocrit 45.3 % (34.9-44.5); Hemoglobin 15.1 g/dL (12.0-15.5); Mean Corpuscular HGB CONC 33.3 g/dL (32.0-36.0); Mean Corpuscular Volume 83.9 fL (81.6-98.3); Mean Platelet Volume 9.8 fL (7.4-10.4); Platelet Count 441 10x3/uL (150-450); RBC Distribution Width 14.6 % (11.5-14.5); White Blood Cell (WBC) Count 8.1 10x3/uL (3.5-10.5)
[2024-05-08 09:30] LABS: Anion Gap 16 mmol/L (10-20); BUN (Urea Nitrogen) 17 mg/dL (9.8-20.1); Calc. Creatinine Clearance 52 mL/min (70-130); Calcium 9.7 mg/dL (7.8-10.44); Carbon Dioxide 24 mmol/L (23-31); Chloride 103 mmol/L (98-107); Estimated GFR 68; Glucose 101 mg/dL (83-110); Potassium 3.9 mmol/L (3.5-5.1); Sodium 139 mmol/L (136-145)
[2024-05-08 09:56] VITALS: BP 174/85
[2024-05-08] MEDS: LevoFLOXacin 500 MG TAB PO SCH (09:57)
[2024-05-09] MEDS ORDERED: LevoFLOXacin 500 MG TAB PO SCH (06:00)
== END 2024-05-08 11:40 | DRG 640 ==
LOC: CSHERS 21:56 → CSHTELE 05-04 01:18
PROVIDERS: ADMIT Student in an Organized Health Care Education/Training Program; ATTEND Internal Medicine
DX: E86.0 Dehydration (principal); J10.00 Influenza due to other identified influenza virus with unspecified type of pneumonia; I50.42 Chronic combined systolic (congestive) and diastolic (congestive) heart failure; E78.5 Hyperlipidemia, unspecified; I44.7 Left bundle-branch block, unspecified; E87.6 Hypokalemia; I25.10 Atherosclerotic heart disease of native coronary artery without angina pectoris; I11.0 Hypertensive heart disease with heart failure; M06.9 Rheumatoid arthritis, unspecified; I77.9 Disorder of arteries and arterioles, unspecified; Z79.899 Other long term (current) drug therapy; Z90.49 Acquired absence of other specified parts of digestive tract; Z98.890 Other specified postprocedural states; Z79.82 Long term (current) use of aspirin
CPT/HCPCS: 36415; 71045; 71250; 80048; 80053; 81001; 82550; 83880; 84145; 84484; 85025; 86140; 87081; 93005; 93010; 93306; 94760; 96374; J0456; J0696; J1650; J3490; J7050; J7120

== ENCOUNTER 2024-05-30 10:56 | Outpatient (CLI) | payer MEDICARE | END 2024-05-30 10:57 | disposition home or self-care (01) | LOC: CSHRAD 10:56 | PROVIDERS: ATTEND Physician Assistant | DX: J18.9 Pneumonia, unspecified organism (principal); R91.8 Other nonspecific abnormal finding of lung field | CPT/HCPCS: 71250 ==